=== PATIENT | male | born 1930 | race Caucasian/White ===

== ENCOUNTER 2018-10-01 06:15 | Emergency (ER) | payer MEDICARE, OTHER ==
[~2018-10-01] VITALS: Ht 175.3 cm; Wt 80.7 kg
[~2018-10-01 06:15] MED LIST: CELE200; CIPR500 PO; HYDCHL12.5; HYDCHL25 PO; OXAP600 PO; PHENY100ER; POTCHL20ER PO; SPIHYD; TAMS.4ER; VALS80; VALS80 PO; [UNRECOGNIZED DRUG - REMARK]; [UNRECOGNIZED DRUG - REMARK]
[2018-10-01] MEDS ORDERED: GLUC500 (06:38)
[2018-10-01] MEDS ORDERED: MELO7.5 (06:38)
[2018-10-01] MEDS ORDERED: CENTRUM SILVER1 EAC4 (06:38)
[2018-10-01] MEDS ORDERED: LOSA50 (06:38)
[2018-10-01] MEDS ORDERED: LO-DOSE ASPIRIN81 MG (06:38)
[2018-10-01] MEDS ORDERED: PYRI100 (06:39)
[2018-10-01] MEDS ORDERED: OSTEO BI-FLEX1 EACH (06:39)
[2018-10-01] MEDS ORDERED: PRAV20 (06:39)
[2018-10-01 06:58] LABS: BASOPHILS ABSOLUTE AUTO 0.04 K/mm3 (0.00-0.23); BASOPHILS PERCENT AUTO 0 % (0-2); EOSINOPHILS ABSOLUTE AUTO 0.84 K/mm3 (0.00-0.68); EOSINOPHILS PERCENT AUTO 7 % (0-6); Hematocrit 41.8 % (37.0-53.0); Hemoglobin 14.4 g/dL (13.5-17.5); IMMATURE GRAN ABSOLUTE AUTO 0.07 K/mm3 (0.00-0.10); IMMATURE GRAN PERCENT AUTO 1 % (0-1); LYMPHOCYTES ABSOLUTE AUTO 1.15 K/mm3 (0.84-5.20); LYMPHOCYTES PERCENT AUTO 9 % (21-46); MONOCYTES ABSOLUTE AUTO 0.97 K/mm3 (0.16-1.47); MONOCYTES PERCENT AUTO 8 % (4-13); Mean Corpuscular HGB 30.8 pg (26.0-34.0); Mean Corpuscular HGB Conc 34.4 g/dL (31.5-36.5); Mean Corpuscular Volume 89 fL (80-100); Mean Platelet Volume 9.2 fL (9.1-12.4); NEUTROPHILS ABSOLUTE AUTO 9.43 K/mm3 (1.96-9.15); NEUTROPHILS PERCENT AUTO 75 % (41-73); Platelet Count 269 K/mm3 (150-400); RDW Coefficient Variation 12.4 % (11.7-14.2); RDW Standard Deviation 40.2 fL (35.1-46.3); Red Blood Cell Count 4.68 M/mm3 (4.30-5.90)
[2018-10-01 07:10] LABS: Alanine Aminotransfer (ALT/SGP 29 U/L (12-78); Albumin, Blood 3.5 g/dL (3.4-5.0); Alk Phos 104 U/L (50-136); Anion Gap 8 mmol/L (6-16); Aspartate Aminotrans (AST/SGOT 21 U/L (12-37); Bilirubin, Total 0.4 mg/dL (0.1-1.0); Blood Urea Nitrogen 14 mg/dL (8-24); CO2, Blood 28 mmol/L (21-32); Calcium, Blood 8.7 mg/dL (8.5-10.1); Chloride, Blood 93 mmol/L (98-108); Creatinine, Blood 0.88 mg/dL (0.60-1.20); Globulin, Blood 3.4 g/dL (2.2-4.0); Glomerular Filtration Rate >60 (60-); Glucose, Blood 119 mg/dL (70-99); Potassium, Blood 3.7 mmol/L (3.5-5.5); Sodium, Blood 129 mmol/L (136-145); Total Protein, Blood 6.9 g/dL (6.4-8.2); Troponin I <0.015 ng/mL (0.000-0.040)
[2018-10-01] MEDS ORDERED: Norco 5-325 Ta1 EACH PO (08:13)
== END 2018-10-01 08:20 | disposition home or self-care (01) ==
LOC: ER 06:15
PROVIDERS: Emergency Medicine
DX: R07.9 Chest pain, unspecified (principal); I25.10 Atherosclerotic heart disease of native coronary artery without angina pectoris; I10 Essential (primary) hypertension; E78.5 Hyperlipidemia, unspecified; Z79.899 Other long term (current) drug therapy; Z79.82 Long term (current) use of aspirin
CPT/HCPCS: 36415; 71045; 80053; 84484; 85025; 93005; 93010; 96374; 99285-25; J1170